=== PATIENT | male | born 1985 | race Caucasian/White ===

== ENCOUNTER 2022-03-26 02:01 | Emergency (ER) | payer SELFPAY ==
[~2022-03-26] VITALS: Ht 172.7 cm; Wt 77.1 kg
[2022-03-26] MEDS ORDERED: CEPH500 PO (06:02)
== END 2022-03-26 06:14 | disposition home or self-care (01) ==
LOC: ER 02:01
DX: S51.821A Laceration with foreign body of right forearm, initial encounter (principal); S54.21XA Injury of radial nerve at forearm level, right arm, initial encounter; W34.00XA Accidental discharge from unspecified firearms or gun, initial encounter; F17.210 Nicotine dependence, cigarettes, uncomplicated
CPT/HCPCS: 73090; 90714; A9270